=== PATIENT | male | born 1990 | race African-American/Black ===

== ENCOUNTER 2019-07-29 11:30 | Emergency (ER) | payer OTHER, SELFPAY ==
[2019-07-29] MEDS ORDERED: Adacel (T-DAP) 0.5 ML SYRINGE ONE (11:47)
[2019-07-29] MEDS ORDERED: Lidocaine 1% w/Epinephrine 1:100K 20 ML VIAL ONE (11:50)
[2019-07-29] MEDS ORDERED: Bacitracin 1 PK ONE (12:57)
== END 2019-07-29 13:05 | disposition home or self-care (01) ==
LOC: ERS 11:30
DX: S51.812A Laceration without foreign body of left forearm, initial encounter (principal); S51.012A Laceration without foreign body of left elbow, initial encounter; Z23 Encounter for immunization; V59.9XXA Occupant (driver) (passenger) of pick-up truck or van injured in unspecified traffic accident, initial encounter; Y92.410 Unspecified street and highway as the place of occurrence of the external cause
CPT/HCPCS: 12002; 90471; 90715